=== PATIENT | female | born 1990 | race Caucasian/White ===

== ENCOUNTER 2018-07-16 21:38 | Emergency (ER) | payer BC, SELFPAY ==
[2018-07-16 22:20] LABS: Amphetamine Not Detected (NotDetected); Barbiturates Screen Not Detected (NotDetected); Benzodiazepine Screen Not Detected (NotDetected); Cocaine Metabolite Screen Not Detected (NotDetected); Medtox Control Line Valid? VALID (VALID); Medtox Reader # READER 4; Methadone Not Detected (NotDetected); Methamphetamine Not Detected (NotDetected); Opiate Screen Not Detected (NotDetected); Oxycodone Screen Not Detected (NotDetected); Phencyclidine (PCP) Not Detected (NotDetected); THC/Cannabinoid Screen Not Detected (NotDetected); Tricyclic Screen Not Detected (NotDetected)
== END 2018-07-16 23:17 | disposition home or self-care (01) ==
LOC: ERS 21:38
DX: F10.129 Alcohol abuse with intoxication, unspecified (principal); Y90.7 Blood alcohol level of 200-239 mg/100 ml
CPT/HCPCS: 36415; 80306; 80307; 96360

== ENCOUNTER 2022-09-08 12:39 | Emergency (ER) | payer OTHER, SELFPAY ==
[2022-09-08] MEDS ORDERED: Proparacaine 0.5% Opth 15 ML BOT ONE (13:13)
[2022-09-08] MEDS ORDERED: Fluorescein Opthalmic Strip ONE (13:13)
== END 2022-09-08 14:17 | disposition home or self-care (01) ==
LOC: ERS 12:39
DX: B02.9 Zoster without complications (principal)
CPT/HCPCS: 99283